=== PATIENT | female | born 1985 | race Caucasian/White ===

== ENCOUNTER 2024-08-28 19:42 | Emergency (ER) | payer SELFPAY ==
[2024-08-28 19:50] VITALS: BP 125/83; PULSE 98; RESP 16; TEMP 36.6; O2SAT 100
[2024-08-28 19:58] LABS: EDUAAPPEAR Cloudy; EDUABILI Negative (Negative); EDUABLOOD Trace (Negative); EDUACOLOR1 Light/Pale; EDUAGLUCOSE Negative (Negative); EDUAKETONE Negative (Negative); EDUALEUKO 2+ (Negative); EDUANITRATE Positive (Negative); EDUAPH 7.0; EDUAPROTEIN 1+ (Negative); EDUASPGRAVITY 1.020; EDUAUROBILI 0.2
--- NOTE | 2024-08-28 20:03 | ED_ITS ---
HPI - Female Genitourinary General Chief complaint: Urogenital-Female Stated complaint: Kidney Pain Time Seen by Provider: 08/28/24 19:56 Source: patient and RN notes reviewed Mode of arrival: ambulatory Limitations: no limitations History of Present Illness HPI Narrative: Patient presents today with a one-week history of malodorous urine, cloudy urine, dysuria, frequency, voiding small amounts. Today she started experiencing some right-sided low back pain. Denies fever, sweats or chills, hematuria. She took some ibuprofen 15 minutes prior to arrival. Related Data Allergies Allergy/AdvReac Type Severity Reaction Status Date / Time No Known Allergies Allergy Verified 08/28/24 19:49 PMFSH Comments At time of signature, I have reviewed and agree with nursing past medical, surgical, social and family history unless otherwise noted. Please see nursing chart for further information. There is no relevant family history pertinent to the presenting complaint Exam Narrative: GENERAL: Well-appearing, well-nourished, and in no acute distress. HEAD: Normocephalic, atraumatic. EYES: EOMI. No redness or drainage. Conjunctivae normal. ENT: Mucous membranes pink and moist. NECK: Normal AROM. CHEST: No respiratory distress. Clear to auscultation. HEART: Regular rate and rhythm. No murmur appreciated. ABDOMEN: Soft, nondistended, normal active bowel sounds.+ mild suprapubic tenderness.-CVAT EXTREMITIES: Normal range of motion. No edema. SKIN: Warm, dry, no rash. Capillary refill normal. Normal skin turgor. NEURO: No focal deficits. Alert and oriented x3. Gait steady. PSYCH: Normal affect. No signs of depression or anxiety. Course Course Level of Care: Express Care Visit Vital Signs Vital signs: Vital Signs Temperature 97.8 F 08/28/24 19:50 Pulse Rate 98 08/28/24 19:50 Respiratory Rate 16 08/28/24 19:50 Blood Pressure 125/83 08/28/24 19:50 Pulse Oximetry 100 08/28/24 19:50 Temperature 97.8 F 08/28/24 19:50 Pulse Rate 98 08/28/24 19:50 Respiratory Rate 16 08/28/24 19:50 Blood Pressure 125/83 08/28/24 19:50 Pulse Oximetry 100 08/28/24 19:50 Reviewed MDM - Female Genitourinary MDM Narrative Medical decision making narrative: 39-year-old female patient presents with dysuria, frequency, voiding small amounts, malodorous urine, and right-sided low back pain. Urinalysis is positive for nitrites, leukocytes, and blood, which is consistent for urinary tract infection given patient's history. She is not experiencing any fever or other systemic symptoms that would suggest the need for transfer to the ER. Vital signs stable. Prescription for Augmentin sent to pharmacy. Culture pending. Anticipatory guidance given. Differential Diagnosis Differential diagnosis: Likely urinary tract infection, cystitis and other (Pyelonephritis) Lab Data Attestation: I reviewed the patient's lab results. Labs: Lab Results 08/28/24 Range/Units 19:55 POC Urine Color Light/pale POC Urine Clarity Cloudy POC Urine pH 7.0 POC Ur Specif [place] 1.020 POC Urine Protein 1+ (Negative) POC Ur Glucose (UA) Negative (Negative) POC Urine Ketones Negative (Negative) POC Urine Blood Trace (Negative) POC Urine Nitrite Positive (Negative) POC Urine Bilirubin Negative (Negative) POC Urine Urobilinogen 0.2 POC U Leukocyte Esteras 2+ (Negative) Critical Care Time Critical Care Time Critical Care Time: No Discharge Plan Discharge Clinical Impression: Urinary tract infection Qualifiers: Urinary tract infection type: acute cystitis Hematuria presence: with hematuria Qualified Code(s): N30.01 - Acute cystitis with hematuria Patient Disposition: Home Condition: Stable Instructions: Urinary Tract Infection in Women (ED) Additional Instructions: Your urine shows infection today. Take Augmentin as prescribed until gone. Your urine will be sent of for a culture to identify what type of bacteria is causing your infection. If the culture shows that your medication will not get rid of your infection, you will be notified and a new antibiotic will be called in for you. If your symptoms worsen to include fever, sweats, chills, nausea, vomiting, severe abdominal or back pain, please go to the ER for further evaluation. Your blood pressure was elevated above 120/80 today at Urgent Care. This puts you above the threshold for follow up. Please schedule a followup visit with your personal physician as soon as possible, for further evaluation and treatment. Even blood pressure exceeding 120/80 may indicate pre-hypertension. Patient Language: [place]an Prescriptions: New amoxicillin-pot clavulanate 875-125 mg tablet 1 tablet PO Q12H 7 Days Qty: 14 0RF Follow-up/Referrals: PHYSICIAN,[employer]TING [employer] OPERATOR [Primary Care Provider] - Time of Disposition: 20:02
== END 2024-08-28 20:06 | disposition home or self-care (01) ==
PROVIDERS: Emergency Provider Nurse Practitioner
DX: N30.01 Acute cystitis with hematuria (principal)
CPT/HCPCS: 81003; 99203; G0463